=== PATIENT | male | born 1990 | race African-American/Black ===

== ENCOUNTER 2016-09-27 15:02 | Emergency (ER) | payer OTHER ==
[~2016-09-27] VITALS: Ht 167.6 cm; Wt 90.7 kg
[~2016-09-27 15:02] MED LIST: BACTRIM DS TAB1 EACH PO; FLEXERIL PO; NOHOMEMEDICATIONS; NORCO 5-325 TA1 EACH PO; PERCOCET 5-3251 EACH PO; ULTRAM 50MG TAB50 MG PO
[2016-09-27 15:04] VITALS: BP 112/77
[2016-09-27] MEDS ORDERED: BENADRYL25 MG PO (15:50)
[2016-09-27] MEDS ORDERED: PREDNISONE 10 M10 MG PO (15:50)
[2016-09-27] MEDS ORDERED: PEPCID20 MG PO (15:50)
== END 2016-09-27 16:02 | disposition home or self-care (01) ==
LOC: ER 15:02
DX: T78.49XA Other allergy, initial encounter (principal); X58.XXXA Exposure to other specified factors, initial encounter; Z98.890 Other specified postprocedural states; F17.210 Nicotine dependence, cigarettes, uncomplicated; F10.99 Alcohol use, unspecified with unspecified alcohol-induced disorder; F12.10 Cannabis abuse, uncomplicated

== ENCOUNTER 2018-02-08 19:46 | Emergency (ER) | payer OTHER ==
[~2018-02-08] VITALS: Ht 172.7 cm; Wt 90.7 kg
[~2018-02-08 19:46] MED LIST changes: +BENADRYL25 MG PO; +IBUPROFEN 600600 M1 PO; +PEPCID20 MG PO; +PREDNISONE 10 M10 MG PO
== END 2018-02-08 20:23 | disposition home or self-care (01) ==
LOC: ER 19:46
DX: L73.2 Hidradenitis suppurativa (principal); L02.411 Cutaneous abscess of right axilla; Z48.01 Encounter for change or removal of surgical wound dressing; F17.210 Nicotine dependence, cigarettes, uncomplicated

== ENCOUNTER 2019-05-31 04:36 | Emergency (ER) | payer OTHER ==
[~2019-05-31] VITALS: Ht 170.2 cm; Wt 90.7 kg
[2019-05-31] MEDS ORDERED: KEFLEX500 M1 PO (05:19)
[2019-05-31] MEDS ORDERED: BACTRIM DS TAB1 EACH PO (05:19)
[2019-05-31 06:10] VITALS: BP 135/72
== END 2019-05-31 06:10 | disposition home or self-care (01) ==
LOC: ER 04:36
DX: L02.411 Cutaneous abscess of right axilla (principal); F17.210 Nicotine dependence, cigarettes, uncomplicated

== ENCOUNTER 2020-03-27 05:22 | Emergency (ER) | payer OTHER ==
[~2020-03-27] VITALS: Ht 167.6 cm; Wt 88.5 kg
[~2020-03-27 05:22] MED LIST changes: +KEFLEX500 M1 PO
[2020-03-27] MEDS ORDERED: BACTRIM DS TAB1 EACH PO (06:50)
[2020-03-27 07:00] VITALS: BP 155/95
== END 2020-03-27 07:05 | disposition home or self-care (01) ==
LOC: ER 05:22
DX: L72.8 Other follicular cysts of the skin and subcutaneous tissue (principal); L73.2 Hidradenitis suppurativa; L02.412 Cutaneous abscess of left axilla; F17.210 Nicotine dependence, cigarettes, uncomplicated; Z79.899 Other long term (current) drug therapy

== ENCOUNTER 2021-01-05 02:58 | Emergency (ER) | payer OTHER ==
[~2021-01-05] VITALS: Ht 170.2 cm; Wt 90.7 kg
[2021-01-05] MEDS ORDERED: FLEXERIL PO (04:21)
[2021-01-05 04:35] VITALS: BP 134/96
== END 2021-01-05 05:08 | disposition home or self-care (01) ==
LOC: ER 02:58
DX: S39.012A Strain of muscle, fascia and tendon of lower back, initial encounter (principal); S80.02XA Contusion of left knee, initial encounter; F17.210 Nicotine dependence, cigarettes, uncomplicated; Z98.890 Other specified postprocedural states; V89.2XXA Person injured in unspecified motor-vehicle accident, traffic, initial encounter; Y93.I9 Activity, other involving external motion; Y92.488 Other paved roadways as the place of occurrence of the external cause; Y99.8 Other external cause status